=== PATIENT | female | born 1955 | race Caucasian/White ===

== ENCOUNTER 2016-06-22 03:55 | Emergency (ER) | payer BC ==
[~2016-06-22 03:55] MED LIST: ALBUTEROL17 GM INH; ASPIRIN1 GM; AUGMENTIN PO; BACTRIM DS TABL1 TA1; FISH OIL 1,0001 CAP PO; GARLIC1 MG; IBUPROFEN800 MG; LEVAQUIN PO; LIPITOR40 MG PO; LORTAB ELIXIR15 ML DOB; PROMETHAZINE W118 M1 PO; TUSSIONEX PENN473 ML PO; VICODIN 5/1 TAB 5/50; ZESTORETIC 20/11 TA1; ZITHROMAX PO; ZOCOR PO
== END 2016-06-22 04:36 | disposition home or self-care (01) ==
LOC: SED 03:55
DX: G57.11 Meralgia paresthetica, right lower limb (principal); I10 Essential (primary) hypertension; Z79.899 Other long term (current) drug therapy
CPT/HCPCS: 99283